=== PATIENT | female | born 1980 | race African-American/Black ===

== ENCOUNTER 2024-10-13 18:14 | Emergency (ER) | payer BC, OTHER ==
[~2024-10-13] VITALS: Ht 162.6 cm; Wt 77.0 kg
[2024-10-13 18:36] VITALS: O2SAT 100
[2024-10-13] MEDS ORDERED: CEPH500T MT (21:00)
[2024-10-13] MEDS ORDERED: NAPR-1164 MT (21:00)
[2024-10-13 21:08] VITALS: BP 118/69; PULSE 64; RESP 17; TEMP 36.7; O2SAT 100
== END 2024-10-13 21:09 | disposition home or self-care (01) ==
LOC: ER 18:14
DX: L03.119 Cellulitis of unspecified part of limb (principal); Z98.890 Other specified postprocedural states
CPT/HCPCS: 73630; 99283